=== PATIENT | female | born 1990 | race Caucasian/White ===

== ENCOUNTER 2021-10-30 01:28 | Inpatient (IN) | payer BC ==
[2021-10-30 01:53] VITALS: BMI 28.0
[2021-10-30] MEDS ORDERED: Butorphanol Tartrate 1 MG/ML VIAL SLOW IVP PRN ×2 (02:45→16:45)
[2021-10-30] MEDS ORDERED: ceFAZolin 2 GM/Dextrose 50 ML 2 GM in Premix Bag 1 BAG IVPB SCH (02:45)
[2021-10-30] MEDS ORDERED: Promethazine HCl 25 MG/ML VIAL IM PRN ×2 (02:45→04:39)
[2021-10-30] MEDS ORDERED: Ondansetron PF 4 MG/2 ML Vial IVP PRN ×2 (02:45→04:39)
[2021-10-30] MEDS ORDERED: Azithromycin 500 MG in Sodium Chloride 0.9% 250 ML 250 ML IVPB SCH (02:45)
[2021-10-30] MEDS ORDERED: hydrALAZINE 20 MG/ML VIAL SLOW IVP PRN ×2 (02:45→08:11)
[2021-10-30] MEDS ORDERED: Acetaminophen 500 MG TAB PO PRN (02:45)
[2021-10-30] MEDS ORDERED: Bicitra 30 ML UDCUP PO PRN (02:45)
[2021-10-30] MEDS ORDERED: Lactated Ringer's 1,000 ML IV SCH (02:45)
[2021-10-30] MEDS ORDERED: Famotidine/PF 20 mg/2ml Vial SLOW IVP PRN (02:46)
[2021-10-30 03:02] LABS: Hemoglobin 12.5 g/dL (12.0-15.5); Mean Corpuscular Hemoglobin 32.1 pg (27.0-33.0); Mean Corpuscular Volume 91.5 fl (81.6-98.3); Mean Platelet Volume 10.3 fl (7.4-10.4); Platelet Count 189 10x3/uL (150-450); RBC Distribution Width 13.4 % (11.5-14.5); White Blood Cell (WBC) Count 7.2 10x3/uL (3.5-10.5)
[2021-10-30 03:31] LABS: Syphilis Antibody Nonreactive (Nonreactive); Syphilis Antibody Index 0.06 S/CO (<1.00 Non-Reactive)
[2021-10-30 03:32] LABS: Hep B Surf Ag Non-Reactive S/CO (NonReactive)
[2021-10-30 03:34] LABS: HBSAg Index 0.17 S/CO (0-0.99)
[2021-10-30] MEDS ORDERED: Morphine PF 10 MG/10 ML VIAL ONE (04:05)
[2021-10-30] MEDS ORDERED: Fentanyl 100 MCG/2 ML VIAL ONE ×2 (04:05→07:34)
[2021-10-30] MEDS ORDERED: PHENYLEPHRINE-NS 100 MCG/ML 10 ML SYRINGE ONE (04:06)
[2021-10-30] MEDS ORDERED: Ketorolac Tromethamine 30 MG/ML VIAL ONE (04:06)
[2021-10-30] MEDS ORDERED: Ondansetron PF 4 MG/2 ML Vial ONE (04:06)
[2021-10-30] MEDS ORDERED: Oxytocin 10 UNITS/ML VIAL ONE ×2 (04:06→05:16)
[2021-10-30] MEDS ORDERED: Phenylephrine 40 MG/NS 250 ML 250 ML ONE (04:06)
[2021-10-30] MEDS ORDERED: ePHEDrine Sulfate 50 MG/10 ML VIAL ONE (04:32)
[2021-10-30 04:37] LABS: SARS-CoV-2 NAA Rapid Test Not Detected (NotDetected)
[2021-10-30] MEDS ORDERED: Promethazine HCl 25 MG SUPP PR PRN (04:39)
[2021-10-30] MEDS ORDERED: Naloxone HCl 0.4 mg/ml Vial IV PRN (04:39)
[2021-10-30] MEDS ORDERED: L&D-Morphine 4 MG/ML VIAL SLOW IVP PRN (04:39)
[2021-10-30] MEDS ORDERED: Ondansetron HCl/PF 4 MG/2 ML Vial IVP PRN (04:39)
[2021-10-30] MEDS ORDERED: Meperidine HCl/PF 25 MG/ML VIAL SLOW IVP PRN (04:39)
[2021-10-30] MEDS ORDERED: diphenhydrAMINE 50 MG/ML VIAL IVP PRN (04:39)
[2021-10-30] MEDS ORDERED: Fentanyl 100 MCG/2 ML VIAL SLOW IVP PRN (04:39)
[2021-10-30] MEDS ORDERED: Naloxone HCl 0.4 mg/ml Vial IVP PRN ×2 (04:39)
[2021-10-30] MEDS ORDERED: Moisturizing Cream (Eucerin) 113 GM JAR TOP PRN (04:39)
[2021-10-30] MEDS ORDERED: Communication Order-Pharmacy FS SCH (04:45)
[2021-10-30] MEDS ORDERED: Ketorolac Tromethamine 30 MG/ML VIAL IVP SCH (04:45)
[2021-10-30] MEDS ORDERED: Metoclopramide HCl 10 MG/2 ML VIAL ONE (04:48)
[2021-10-30] MEDS ORDERED: NS w/ Oxytocin 30 units 500 ML ONE (06:44)
[2021-10-30] MEDS ORDERED: Bisacodyl 10 MG SUPP PR PRN (08:11)
[2021-10-30] MEDS ORDERED: NS w/ Oxytocin 30 units 500 ML IV SCH (08:11)
[2021-10-30] MEDS ORDERED: diphenhydrAMINE 25 MG CAP PO PRN (08:11)
[2021-10-30] MEDS ORDERED: Acetaminophen 325 MG TAB PO PRN (08:11)
[2021-10-30] MEDS ORDERED: Simethicone Chewable 80 MG TAB PO PRN (08:11)
[2021-10-30] MEDS ORDERED: Lanolin Ointment 7 GM TUBE TOP PRN (08:11)
[2021-10-30] MEDS ORDERED: Boostrix 0.5 ML (Tdap) VIAL IM ONE (08:11)
[2021-10-30] MEDS: Ketorolac Tromethamine 30 MG/ML VIAL IVP PRN ×3 (09:42→22:02)
[2021-10-30] MEDS: Docusate 100 MG CAP PO SCH ×2 (09:51→22:02)
[2021-10-30] MEDS: Ferrous Sulfate 325 MG TAB PO SCH ×2 (09:51→22:01)
[2021-10-30] MEDS: Prenatal Vitamin 1 TAB PO SCH (09:51)
[2021-10-30] MEDS ORDERED: HYDROcodone/Acetaminophen 5/325 mg Tablet PO PRN (16:45)
[2021-10-31] MEDS: HYDROcodone/Acetaminophen 5/325 mg Tablet PO PRN ×3 (05:46→19:53)
[2021-10-31] MEDS: Ibuprofen 800 MG TAB PO SCH ×3 (05:47→21:43)
[2021-10-31 07:51] LABS: Hemoglobin 11.7 g/dL (12.0-15.5); Mean Corpuscular HGB CONC 35.8 g/dL (32.0-36.0); Mean Corpuscular Hemoglobin 32.1 pg (27.0-33.0); Mean Corpuscular Volume 89.8 fl (81.6-98.3); Mean Platelet Volume 10.3 fl (7.4-10.4); Platelet Count 156 10x3/uL (150-450); RBC Distribution Width 13.6 % (11.5-14.5); Red Blood Cell (RBC) Count 3.64 10x6/uL (3.90-5.03)
[2021-10-31] MEDS: Docusate 100 MG CAP PO SCH ×2 (10:44→21:43)
[2021-10-31] MEDS: Prenatal Vitamin 1 TAB PO SCH (10:44)
[2021-10-31] MEDS: Ferrous Sulfate 325 MG TAB PO SCH ×2 (10:45→21:45)
[2021-11-01] MEDS: HYDROcodone/Acetaminophen 5/325 mg Tablet PO PRN (00:35)
[2021-11-01] MEDS: Ibuprofen 800 MG TAB PO SCH (05:50)
[2021-11-01 08:45] VITALS: BP 133/76; TEMP 98.4
[2021-11-01] MEDS: Ferrous Sulfate 325 MG TAB PO SCH (09:31)
[2021-11-01] MEDS: Prenatal Vitamin 1 TAB PO SCH (09:35)
[2021-11-01] MEDS: Docusate 100 MG CAP PO SCH (09:35)
== END 2021-11-01 14:10 | disposition home or self-care (01) | DRG 788 ==
LOC: CSHLD/OP 01:28 → CSHLD 03:50 → CSHPP 09:21
PROVIDERS: ADMIT Obstetrics & Gynecology; ATTEND Obstetrics & Gynecology
PROC: 10D00Z1 Extraction of Products of Conception, Low, Open Approach (ICD-10-PCS; principal; 2021-10-30)
DX: O42.02 Full-term premature rupture of membranes, onset of labor within 24 hours of rupture (principal); O34.211 Maternal care for low transverse scar from previous cesarean delivery; Z20.822 Contact with and (suspected) exposure to COVID-19; Z3A.38 38 weeks gestation of pregnancy; Z37.0 Single live birth; O99.62 Diseases of the digestive system complicating childbirth; K66.0 Peritoneal adhesions (postprocedural) (postinfection)
CPT/HCPCS: 36415; 51702; 85027; 86780; 86850; 86900; 86901; 87340; 99285; J1885; J2274; J2405; J2590; J2765; J3010; U0002

== ENCOUNTER 2022-09-30 21:47 | Emergency (ER) | payer BC ==
[2022-09-30 22:59] LABS: Hemoglobin 13.3 g/dL (12.0-15.5); Mean Corpuscular Hemoglobin 29.4 pg (27.0-33.0); Mean Corpuscular Volume 86.5 fl (81.6-98.3); Mean Platelet Volume 9.9 fl (7.4-10.4); Platelet Count 251 10x3/uL (150-450); RBC Distribution Width 12.4 % (11.5-14.5); Red Blood Cell (RBC) Count 4.52 10x6/uL (3.90-5.03); White Blood Cell (WBC) Count 6.1 10x3/uL (3.5-10.5)
[2022-09-30 23:07] LABS: ALT (SGPT) 9 U/L (8-55); AST (SGOT) 17 U/L (5-34); Albumin 4.4 g/dL (3.5-5.0); Alkaline Phosphatase 52 U/L (40-110); Anion Gap 14 mmol/L (10-20); BUN (Urea Nitrogen) 17 mg/dL (7.0-18.7); Bilirubin, Total 0.2 mg/dL (0.2-1.2); Calc. Creatinine Clearance 0 mL/min (70-130); Calcium 9.5 mg/dL (7.8-10.44); Carbon Dioxide 23 mmol/L (22-29); Chloride 108 mmol/L (98-107); Estimated GFR 108; Globulin 2.4 g/dL (2.4-3.5); Glucose 99 mg/dL (70-105); Lipase 16 U/L (8-78); Potassium 4.1 mmol/L (3.5-5.1); Protein, Total 6.8 g/dL (6.0-8.3); Sodium 141 mmol/L (136-145)
[2022-09-30 23:29] LABS: MDiff Complete? YES
[2022-09-30 23:33] LABS: Eosinophils 4 % (0-10); Lymphocytes 54 % (21-51); Monocytes 8 % (0-10); Neutrophil 34 % (42-75)
[2022-09-30 23:34] LABS: Platelet Morphology Comment Appears Adequate; RBC Morphology Normal
== END 2022-09-30 23:34 | disposition home or self-care (01) ==
LOC: CSHERS 21:47
DX: R07.9 Chest pain, unspecified (principal)
CPT/HCPCS: 36415; 71045; 80053; 83690; 83880; 84484; 85025; 85379; 93005

== ENCOUNTER 2024-07-21 10:23 | Inpatient (IN) | payer BC ==
[2024-07-21] MEDS ORDERED: Bicitra 30 ML UDCUP PO PRN (10:42)
[2024-07-21] MEDS ORDERED: Famotidine/PF 20 mg/2ml Vial SLOW IVP PRN (10:42)
[2024-07-21] MEDS ORDERED: Carboprost 250 MCG/ML AMP IM PRN (10:42)
[2024-07-21] MEDS ORDERED: hydrALAZINE 20 MG/ML VIAL SLOW IVP PRN ×2 (10:42→13:19)
[2024-07-21] MEDS ORDERED: Misoprostol 200 MCG TAB PR PRN (10:42)
[2024-07-21] MEDS ORDERED: Ondansetron PF 4 MG/2 ML Vial IVP PRN ×4 (10:42→13:19)
[2024-07-21] MEDS ORDERED: Tranexamic Acid 1,000 MG/10 ML VIAL IVP PRN (10:42)
[2024-07-21] MEDS ORDERED: Promethazine HCl 25 MG/ML VIAL IM PRN ×3 (10:42→13:19)
[2024-07-21] MEDS ORDERED: Methylergonovine 0.2 MG/ML VIAL IM PRN (10:42)
[2024-07-21] MEDS ORDERED: Diphenoxylate HCl/Atropine Tablet PO PRN (10:42)
[2024-07-21] MEDS ORDERED: CEFAZOLIN 2 GM in Sodium Chloride 0.9% 100 ML IVPB SCH (10:45)
[2024-07-21] MEDS ORDERED: Oxytocin 30 units/NS 500 ML 500 ML IV SCH ×2 (10:45→13:30)
[2024-07-21 11:01] VITALS: BMI 27.3
[2024-07-21 11:08] LABS: Hematocrit 38.6 % (34.9-44.5); Hemoglobin 12.7 g/dL (12.0-15.5); Mean Corpuscular HGB CONC 32.9 g/dL (32.0-36.0); Mean Corpuscular Hemoglobin 29.4 pg (27.0-33.0); Mean Corpuscular Volume 89.4 fL (81.6-98.3); Mean Platelet Volume 9.9 fL (7.4-10.4); Platelet Count 235 10x3/uL (150-450); RBC Distribution Width 14.5 % (11.5-14.5); Red Blood Cell (RBC) Count 4.32 10x6/uL (3.90-5.03); White Blood Cell (WBC) Count 9.63 10x3/uL (3.5-10.5)
[2024-07-21] MEDS ORDERED: diphenhydrAMINE 50 MG/ML VIAL IVP PRN (11:31)
[2024-07-21] MEDS ORDERED: Naloxone HCl 0.4 mg/ml Vial IV PRN (11:31)
[2024-07-21] MEDS ORDERED: Moisturizing Cream (Eucerin) 113 GM JAR TOP PRN (11:31)
[2024-07-21] MEDS ORDERED: fentaNYL 50 mcg/mL 1 mL Vial SLOW IVP PRN (11:31)
[2024-07-21] MEDS ORDERED: Naloxone HCl 0.4 mg/ml Vial IVP PRN ×2 (11:31)
[2024-07-21] MEDS ORDERED: Meperidine HCl/PF 25 MG (1 mL) VIAL SLOW IVP PRN (11:31)
[2024-07-21] MEDS ORDERED: HYDROmorphone 0.5 MG/0.5 ML SYRINGE SLOW IVP PRN (11:31)
[2024-07-21 11:42] LABS: Syphilis Antibody Nonreactive (Nonreactive); Syphilis Antibody Index 0.06 S/CO (<1.00 Non-Reactive)
[2024-07-21 11:44] LABS: HBsAg Index 0.17 S/CO (0-0.99); Hep B Surf Ag - L&D Non-Reactive S/CO (NonReactive)
[2024-07-21] MEDS ORDERED: Ketorolac Tromethamine 30 MG (1 mL) VIAL IVP SCH (11:45)
[2024-07-21] MEDS ORDERED: Communication Order-Pharmacy FS SCH (11:45)
[2024-07-21] MEDS ORDERED: Boostrix 0.5 ML (Tdap) VIAL (>/=7 yrs of age) IM ONE (13:19)
[2024-07-21] MEDS: Ketorolac Tromethamine 30 MG (1 mL) VIAL IVP PRN (14:47)
[2024-07-21] MEDS: Ondansetron PF 4 MG/2 ML Vial ONE (16:10)
[2024-07-21] MEDS: Dexmedetomidine 200 MCG/2 ML VIAL ONE (16:10)
[2024-07-21] MEDS: Lactated Ringer's 1,000 ML IV SCH (16:10)
[2024-07-21] MEDS: Morphine PF 10 MG/10 ML VIAL ONE (16:10)
[2024-07-21] MEDS: Oxytocin 10 UNITS/ML VIAL ONE ×2 (16:11→16:12)
[2024-07-21] MEDS: PHENYLEPHRINE-NS 100 MCG/ML 10 ML SYRINGE ONE ×2 (16:11)
[2024-07-21] MEDS: ePHEDrine Sulfate 50 MG/10 ML VIAL ONE (16:11)
[2024-07-21] MEDS: Midazolam HCl 2 mg/2 ml Vial ONE (16:11)
[2024-07-21] MEDS: Simethicone Chewable 80 MG TAB PO PRN (20:48)
[2024-07-21] MEDS: Docusate 100 MG CAP PO SCH (20:48)
[2024-07-21] MEDS ORDERED: HYDROcodone/Acetaminophen 5/325 mg Tablet PO PRN (23:46)
[2024-07-22 05:27] LABS: Hematocrit 32.9 % (34.9-44.5); Hemoglobin 10.7 g/dL (12.0-15.5)
[2024-07-22] MEDS: Ibuprofen 800 MG TAB PO SCH ×2 (09:31→16:21)
[2024-07-22] MEDS: Acetaminophen 500 MG TAB PO PRN (14:00)
[2024-07-23 09:08] VITALS: BP 124/71; TEMP 98.1
[2024-07-24] MEDS ORDERED: Prenatal Vitamin 1 TAB PO SCH (09:00)
== END 2024-07-23 11:20 | disposition home or self-care (01) | DRG 788 ==
LOC: CSHLD 10:23 → CSHPP 15:30
PROVIDERS: ADMIT Obstetrics & Gynecology; ATTEND Obstetrics & Gynecology
PROC: 10D00Z1 Extraction of Products of Conception, Low, Open Approach (ICD-10-PCS; principal; 2024-07-21)
DX: O76 Abnormality in fetal heart rate and rhythm complicating labor and delivery (principal); O99.824 Streptococcus B carrier state complicating childbirth; Z3A.38 38 weeks gestation of pregnancy; Z37.0 Single live birth
CPT/HCPCS: 36415; 51702; 85014; 85018; 85027; 86780; 86850; 86900; 86901; 87340; 99282; J1885; J2250; J2274; J2405; J2590; J7120